=== PATIENT | male | born 1960 | race Caucasian/White ===

== ENCOUNTER 2016-08-26 09:25 | Day surgery (SDC) | payer MEDICAID ==
[~2016-08-26 09:25] MED LIST: Ketorolac 10 MG Tab PO PRN; Lactated Ringers 1,000 ML IV SCH; ceFAZolin 2 GM in Premix Bag 1 BAG IV SCH
[2016-08-26] MEDS ORDERED: Ondansetron 4 MG/2 ML SDV ONE (10:01)
[2016-08-26] MEDS ORDERED: Rocuronium 10 MG/ML 10 ML Syringe ONE (10:01)
[2016-08-26] MEDS ORDERED: Lidocaine 2% 5 ML SDV ONE (10:01)
[2016-08-26] MEDS ORDERED: Propofol 200 MG/20 ML SDV ONE (10:01)
[2016-08-26] MEDS ORDERED: Neostigmine Methylsulfate 1 MG/ML 5 ML Syringe ONE (10:01)
[2016-08-26] MEDS ORDERED: fentaNYL 250 MCG/5 ML SDV ONE (10:02)
[2016-08-26] MEDS ORDERED: Midazolam 1 MG/ML 2 ML SDV ONE (10:02)
[2016-08-26] MEDS ORDERED: ceFAZolin 1 GM Vial ONE (10:04)
[2016-08-26] MEDS ORDERED: Sodium Chloride 0.9% 20 ML ONE (10:04)
--- NOTE | 2016-08-26 10:08 | PCM.PREANE ---
Preanesthetic Assessment - Procedure Proposed Procedure: Left shoulder arthroscopic exam; subacromial decompression, biceps tenotomy and possible rotator cuff repair - Anesthesia/Transfusion/Family Hx Anesthesia History: Prior Anesthesia Without Reaction Transfusion History: No Prior Transfusion(s) Intubation History: Unknown - Review of Systems General: Other (HPI) Pulmonary: No Symptoms Cardiovascular: Other (hypertension) Gastrointestinal: No symptoms Neurological: Other (left shoulder pain) - Physical Assessment Height: 5 ft 8 in Weight: 200 lb ASA Class: 2 Mental Status: Alert & Oriented x3 Airway Class: Mallampati = 2 Dentition: Reports: Normal Dentition Thyro-Mental Finger Breadths: 3 (scar on left angle of mandible) Mouth Opening Finger Breadths: 3 ROM/Head Extension: Full Lungs: Clear to auscultation, Normal respiratory effort Cardiovascular: Regular Rate, Regular Rhythm, No Murmurs - Allergies Allergies/Adverse Reactions: Allergies Allergy/AdvReac Type Severity Reaction Status Date / Time hay Allergy Sneezing Uncoded 08/24/16 12:33 - Blood Blood Available: No Product(s) Available: None - Anesthesia Plan Pre-Op Medication Ordered: None - Acknowledgements Anesthesia Type Planned: General Anesthesia Pt an Appropriate Candidate for the Planned Anesthesia: Yes Alternatives and Risks of Anesthesia Discussed w Pt/Guardian: Yes Pt/Guardian Understands and Agrees with Anesthesia Plan: Yes PreAnesthesia Questionnaire HEENT History: Reports: None, Allergic Rhinitis Other HEENT History: first cutting of hay causes sneezing,watery eyes Cardiovascular History: Reports: Hypertension Respiratory History: Reports: None Gastrointestinal History: Reports: None Genitourinary History: Reports: None Musculoskeletal History: Reports: Arthritis Other Musculoskeletal History: ankles Neurological History: Reports: None Psychiatric History: Reports: None Endocrine/Metabolic History: Reports: Obesity/BMI 30+ Hematologic History: Reports: None Immunologic History: Reports: None Oncologic (Cancer) History: Reports: None Dermatologic History: Reports: None - Past Surgical History Head Surgeries/Procedures: Reports: None HEENT Surgical History: Reports: None Cardiovascular Surgical History: Reports: None Respiratory Surgical History: Reports: None GI Surgical History: Reports: Hernia, Inguinal Male Surgical History: Reports: None Endocrine Surgical History: Reports: None Neurological Surgical History: Reports: None Musculoskeletal Surgical History: Reports: None Oncologic Surgical History: Reports: None Dermatological Surgical History: Reports: None - SUBSTANCE USE Smoking Status *Q: Former Smoker Tobacco Use Within Last Twelve Months: No Recreational Drug Use History: No - HOME MEDS Home Medications: Home Meds Acetaminophen [Tylenol Extra Strength] 500 mg PO ASDIRECTED PRN 08/24/16 [ History] Hydrochlorothiazide 25 mg PO DAILY 08/24/16 [History] Lisinopril 20 mg PO DAILY 08/24/16 [History] Multivitamin [Daily Multiple Vitamin] 1 tab PO DAILY 08/24/16 [History] oxyCODONE HCl/Acetaminophen [Percocet 5-325 mg Tablet] 1 tab PO BID PRN [History] - CURRENT (IN HOUSE) MEDS Current Meds: Current Medications Hydrocodone Bitart/Acetaminophen ([place] 325-10 Mg) 1 - 2 tab PO Q4H PRN PRN Reason: Pain Lactated Ringer's (Ringers, Lactated) 1,000 mls @ 100 mls/hr IV ASDIRECTED CYRUS Cefazolin Sodium/Dextrose 2 gm (/ Premix) 50 mls @ 100 mls/hr IV ONCALL CYRUS Ketorolac Tromethamine (Toradol) 10 mg PO Q6H PRN PRN Reason: Pain Stop: 08/31/16 08:01
[2016-08-26] MEDS ORDERED: ePHEDrine 50 MG/ML SDV ONE (11:13)
[2016-08-26] MEDS ORDERED: Phenylephrine 1% 10 MG/ML SDV ONE (11:22)
[2016-08-26] MEDS ORDERED: Dexamethasone 4 MG/ML 5 ML MDV ONE (11:38)
--- NOTE | 2016-08-26 12:26 | PCM.OPNOTE ---
- General Post-Op/Procedure Note Date of Surgery/Procedure: 08/26/16 Operative Procedure(s): 1. R shoulder arthroscopy with extensive debridement including biceps tenotomy and debridement of anterior labrum. 2. R shoulder arthroscopy with SAD Post-Op Diagnosis: 1. R shoulder impingement. 2. R shoulder biceps tendonopathy. 3. R shoulder deg anterior labrum tear Anesthesia Technique: General ET tube Primary Surgeon: Belgica Laird Tanning Solution Maker: Ez Fried in mLs: 5 Condition: Good Free Text/Narrative:: #[id number]
[2016-08-26] MEDS: fentaNYL 100 MCG/2 ML SDV IVPUSH PRN ×4 (12:41→13:01)
--- NOTE | 2016-08-26 12:41 | PCM.POSTAN ---
POST ANESTHESIA ASSESSMENT - MENTAL STATUS Mental Status: alert, oriented - RESPIRATORY Respiratory Status: respiratory rate WNL, airway patent, O2 saturation stable - CARDIOVASCULAR CV Status: pulse rate WNL, blood pressure stable - GASTROINTESTINAL GI Status: no symptoms - POST OP HYDRATION Hydration Status: adequate & stable
[2016-08-26] MEDS ORDERED: Ketorolac 30 MG/ML SDV IVPUSH ONE (13:19)
[2016-08-26] MEDS: Acetaminophen/HYDROcodone 325-10 MG Tab PO PRN ×2 (13:29→14:24)
--- NOTE | 2016-08-26 15:40 | PCM48HPAN ---
Post Anesthesia Note - EVALUATION WITHIN 48HRS OF ANESTHETIC Vital Signs in Normal Range: Yes Patient Participated in Evaluation: Yes Respiratory Function Stable: Yes Airway Patent: Yes Cardiovascular Function Stable: Yes Hydration Status Stable: Yes Pain Control Satisfactory: Yes Nausea and Vomiting Control Satisfactory: Yes Mental Status Recovered: Yes - COMMENTS/OBSERVATIONS Free Text/Narrative:: discharged to home ion good condition and happy to be done.
[2016-08-26 16:30] VITALS: BP 118/66
--- NOTE | 2016-08-26 18:32 | OR ---
SURGEON: Belgica Laird MD DATE OF PROCEDURE: 08/26/2016 PREOPERATIVE DIAGNOSES: 1. Left shoulder impingement. 2. Left biceps tendinopathy. POSTOPERATIVE DIAGNOSES: 1. Left shoulder impingement. 2. Left biceps tendinopathy. 3. Degenerative anterior labral tear. PROCEDURES: Right shoulder arthroscopy with: 1. Subacromial decompression with release of coracoacromial ligament and acromioplasty. 2. Extensive debridement including arthroscopic biceps tenotomy and debridement of anterior labral tear. TELEVISION CAMERAMAN: FRANCI Fried. ANESTHESIA: General. ESTIMATED BLOOD LOSS: 5 mL. TOURNIQUET TIME: 0 minutes. COMPLICATIONS: None. DVT PROPHYLAXIS: PAS boots to bilateral lower extremities. IMPLANTS USED: None. BRIEF HISTORY: Mynor is a 56-year-old male, who has had complaint of progressive left shoulder pain. He had failed conservative treatment. Due to his lack of response to conservative treatment, I did recommend surgical intervention. The risks and goals of procedure were discussed with the patient and were documented preoperatively. He agreed to proceed. DESCRIPTION OF PROCEDURE: The patient was properly identified and brought to the operating room. He was transferred from the OR cart and placed on the operating table in supine position. General anesthesia was administered. After adequate anesthesia was obtained, the patient was placed in a beach-chair type position. Care was taken to pad all bony prominences. His head was secured. Shoulder showed full range of motion. The left upper extremity was then prepped in standard fashion using ChloraPrep solution. It was then sterilely draped. A time-out was performed to ensure correct site and procedure. Preoperative antibiotics were given. The surgical site had been marked preoperatively. Bony landmarks were identified with a marking pen. Approximately 30 mL of normal saline was introduced into the glenohumeral joint. A posterior portal was established. Blunt trocar and cannula were introduced into the glenohumeral joint. Camera, inflow, and outflow were assembled. The rotator interval was visualized. This showed some synovitis. An anterior portal was then established. Electrocautery was used to resect a portion of the synovitis. The subscapularis was visualized and probed and found to be intact. Subscapularis recess showed no loose bodies. There was quite a bit of synovitis surrounding the biceps tendon. This was pulled into the joint and the synovitis extended distally along the tendon. Due to his preoperative symptoms, along with operative findings, I elected to proceed with a biceps tenotomy. This was performed with electrocautery. The biceps tendon retracted easily into the biceps tendon sheath. The attachment site was smoothed using electrocautery. He did have degenerative tearing of the anterior labrum. This was again debrided with electrocautery. A sublabral foramen was present. The posterior labrum showed no significant degenerative findings but did have some hemorrhagic tissue associated with it. The glenoid and humeral head showed no significant degenerative findings. The axillary pouch showed no loose bodies with mild synovitis. The arm was then brought into an abducted and externally rotated position. The bare area was noted posteriorly. He did have some undersurface tearing which involved only 1 to 2 mm along the mid section of the supraspinatus. This was debrided using the shaver. The instruments were then removed from the glenohumeral joint. The blunt trocar and cannula were introduced into the subacromial space. A lateral portal was established. He had extensive hemorrhagic bursitis noted in the subacromial space. Using a combination of the shaver and electrocautery, an extensive bursectomy was performed. The rotator cuff was able to be easily visualized and no tearing or weakening was noted. The anterior acromion and cork was then visualized. The coracoacromial ligament was released. This seemed to be causing impingement with some minor superficial abrasion of the rotator cuff tendon. A 5.0 mm timur was then used to perform an acromioplasty. This provided good decompression of the subacromial space. The instruments were then removed from the shoulder. The portal sites were closed with 3-0 nylon. Xeroform gauze was placed over the wound and a bulky dressing was applied. He was awakened from his anesthetic and transferred back to the operating room cart. He was brought to recovery room in stable condition. All needle and sponge counts were correct. REZA / SOLIS /[id number]
== END 2016-08-26 15:10 | disposition home or self-care (01) ==
LOC: MW.SDS 09:25
PROVIDERS: ATTEND Orthopaedic Surgery
DX: M75.42 Impingement syndrome of left shoulder (principal); M75.22 Bicipital tendinitis, left shoulder; S43.492A Other sprain of left shoulder joint, initial encounter; E78.00 Pure hypercholesterolemia, unspecified; Z91.09 Other allergy status, other than to drugs and biological substances; Z79.899 Other long term (current) drug therapy
CPT/HCPCS: 29822; 29826; A9270; J0690; J1100; J1885; J2250; J2370; J2405; J3010; J7120; 01630; 88304; J2704

== ENCOUNTER 2024-04-19 07:30 | Inpatient (IN) | payer MEDICAID, MEDICARE ==
[2024-04-19] MEDS ORDERED: Sodium Chloride 0.9% 1,000 ML IV ONE (08:11)
[2024-04-19 08:29] LABS: HEMATOCRIT 39.1 % (42.0-52.0); HEMOGLOBIN 13.2 g/dL (14.0-18.0); MEAN CORPUSCULAR HEMOGLOBIN 29.6 pg (28.0-32.0); MEAN CORPUSCULAR HGB CONC 33.8 g/dL (32.0-36.0); MEAN CORPUSCULAR VOLUME 87.7 fL (83.0-99.0); MEAN PLATELET VOLUME 8.9 fL (9.4-12.4); PLATELET COUNT,PLT 408 K/uL (150-400); RED BLOOD CELL COUNT 4.46 M/uL (4.52-5.90); WHITE BLOOD CELL COUNT,WBC 12.87 K/uL (3.9-11.3)
[2024-04-19] MEDS: Sodium Chloride 0.9% 1,000 ML IV ONE ×2 (08:47→15:19)
[2024-04-19] MEDS: cefTRIAXone 2 GM in Sodium Chloride 0.9% 50 ML IV ONE (08:48)
[2024-04-19] MEDS: Ondansetron 4 MG/2 ML SDV IVPUSH ONE (08:54)
[2024-04-19] MEDS: Morphine 2 MG/ML SYRINGE IVPUSH ONE (08:57)
[2024-04-19] MEDS: Clindamycin Phosphate in D5W 600 MG in Premix Bag 1 BAG IV ONE (09:01)
[2024-04-19 09:11] LABS: A/G RATIO 0.7 (0.9-1.6); ALBUMIN 2.7 g/dL (3.4-5.0); BILIRUBIN TOTAL 0.5 mg/dL (0.2-1.0); C-REACTIVE PROTEIN 9.67 mg/dL (<0.3); CALCIUM 9.1 mg/dL (8.5-10.1); CARBON DIOXIDE,CO2 29.9 mmol/L (21.0-32.0); CREATININE 1.1 mg/dL (0.8-1.3); EST CRCL DRUG DOSING (CG) 66.95 mL/min; POTASSIUM,K 3.8 mmol/L (3.5-5.1); PROTEIN TOTAL,TP 6.8 g/dL (6.4-8.2)
[2024-04-19 09:44] LABS: LYMPHOCYTES ABSOLUTE MAN 3.99 K/uL (1.00-4.80); LYMPHOCYTES PERCENT MAN 31 % (24-44); SEG NEUTROPHILS ABSOLUTE MAN 6.95 K/uL (1.80-7.70); SEG NEUTROPHILS PERCENT MAN 54 % (41-71)
[2024-04-19 09:45] LABS: BASOPHILS ABSOLUTE MAN 0.13 K/uL (0.00-0.20); BASOPHILS PERCENT MAN 1 % (0-1); EOSINOPHILS ABSOLUTE MAN 0.26 K/uL (0.00-0.45); EOSINOPHILS PERCENT MAN 2 % (0-6); MONOCYTES ABSOLUTE MAN 1.54 K/uL (0.00-0.80); MONOCYTES PERCENT MAN 12 % (0-8)
[2024-04-19] MEDS: Ketorolac 30 MG/ML SDV IVPUSH ONE (10:35)
[2024-04-19] MEDS: Bacitracin Oint 28.35 GM Tube TOP STA (10:44)
[2024-04-19] MEDS ORDERED: Diphtheria,Pertussis(Acell),Tetanus Vaccine 0.5 ML Syringe IM ONE (10:49)
[2024-04-19] MEDS: Iopamidol 755 MG/ML 500 ML Multipack Bottle IVPUSH STA (11:39)
[2024-04-19] MEDS ORDERED: Polyethylene Glycol 3350 Powder 17 GM Packet PO PRN (12:21)
[2024-04-19] MEDS ORDERED: Naloxone 0.4 MG/ML SDV IVPUSH PRN (12:21)
[2024-04-19] MEDS ORDERED: Docusate Sodium 100 MG Cap PO PRN (12:21)
[2024-04-19] MEDS ORDERED: Morphine 2 MG/ML SYRINGE IVPUSH PRN (12:21)
[2024-04-19] MEDS ORDERED: Sodium Chloride 0.9% 2.5 ML Syringe FLUSH PRN (12:21)
[2024-04-19] MEDS ORDERED: Ondansetron 4 MG/2 ML SDV IVPUSH PRN (12:21)
[2024-04-19] MEDS ORDERED: Sodium Chloride 0.9% 10 ML Syringe FLUSH PRN (12:21)
[2024-04-19] MEDS ORDERED: Acetaminophen 325 MG Tab PO PRN (12:21)
[2024-04-19] MEDS ORDERED: traMADol 50 MG Tab PO PRN (12:26)
[2024-04-19] MEDS ORDERED: oxyCODONE 5 MG Tab PO PRN (12:58)
[2024-04-19] MEDS: VANCOmycin 2 GM/400 ML 2 GM in Premix Bag 1 BAG IV ONE (14:02)
[2024-04-19] MEDS: Enoxaparin 40 MG/0.4 ML Syringe SUBCUT SCH (14:03)
[2024-04-19] MEDS: Fluconazole 150 MG Tab PO SCH (17:01)
[2024-04-19] MEDS: Diphtheria,Pertussis(Acell),Tetanus Vaccine 0.5 ML Syringe IM ONE (17:12)
[2024-04-19] MEDS ORDERED: VANCOmycin 750 MG in Sodium Chloride 0.9% 250 ML IV SCH (20:30)
[2024-04-19] MEDS: Amitriptyline 25 MG Tab PO SCH (21:07)
[2024-04-19] MEDS: Melatonin 3 MG Tab PO PRN (21:07)
[2024-04-19] MEDS: VANCOmycin 750 MG in Sodium Chloride 0.9% 250 ML IV SCH (21:17)
[2024-04-20] MEDS: Ibuprofen 400 MG Tab PO PRN (01:53)
[2024-04-20 05:39] LABS: BASOPHILS ABSOLUTE AUTO 0.04 K/uL (0.00-0.20); BASOPHILS PERCENT AUTO 0.4 % (0.0-1.0); EOSINOPHILS ABSOLUTE AUTO 0.36 K/uL (0.00-0.45); EOSINOPHILS PERCENT AUTO 3.9 % (0.0-6.0); HEMATOCRIT 36.7 % (42.0-52.0); HEMOGLOBIN 12.2 g/dL (14.0-18.0); IMMATURE GRAN ABSOLUTE AUTO 0.01 K/uL (0.00-0.05); IMMATURE GRAN PERCENT AUTO 0.1 % (0.0-0.4); LYMPHOCYTES ABSOLUTE AUTO 2.51 K/uL (1.00-4.80); LYMPHOCYTES PERCENT AUTO 27.5 % (24.0-44.0); MEAN CORPUSCULAR HEMOGLOBIN 29.5 pg (28.0-32.0); MEAN CORPUSCULAR HGB CONC 33.2 g/dL (32.0-36.0); MEAN CORPUSCULAR VOLUME 88.6 fL (83.0-99.0); MEAN PLATELET VOLUME 8.9 fL (9.4-12.4); MONOCYTES ABSOLUTE AUTO 0.98 K/uL (0.00-0.80); MONOCYTES PERCENT AUTO 10.7 % (0.0-8.0); NEUTROPHILS ABSOLUTE AUTO 5.23 K/uL (1.80-7.70); NEUTROPHILS PERCENT AUTO 57.4 % (41.0-71.0); PLATELET COUNT,PLT 383 K/uL (150-400); RED BLOOD CELL COUNT 4.14 M/uL (4.52-5.90); WHITE BLOOD CELL COUNT,WBC 9.13 K/uL (3.9-11.3)
[2024-04-20 06:02] LABS: CALCIUM 9.1 mg/dL (8.5-10.1); CARBON DIOXIDE,CO2 27.3 mmol/L (21.0-32.0); CREATININE 1.1 mg/dL (0.8-1.3); EST CRCL DRUG DOSING (CG) 66.95 mL/min; MAGNESIUM 2.2 mg/dL (1.8-2.4); PHOSPHORUS 4.3 mg/dL (2.6-4.7); POTASSIUM,K 3.7 mmol/L (3.5-5.1)
[2024-04-20] MEDS: cefTRIAXone 2 GM in Sodium Chloride 0.9% 50 ML IV SCH (08:32)
[2024-04-20] MEDS: Fenofibrate,Micronized 67 MG Cap PO SCH (08:33)
[2024-04-20] MEDS: Hydrochlorothiazide 25 MG Tab PO SCH (08:34)
[2024-04-20] MEDS: Lisinopril 10 MG Tab PO SCH (08:34)
[2024-04-20] MEDS: atorvaSTATin 10 MG Tab PO SCH (08:35)
[2024-04-21 05:25] LABS: BASOPHILS ABSOLUTE AUTO 0.02 K/uL (0.00-0.20); BASOPHILS PERCENT AUTO 0.2 % (0.0-1.0); EOSINOPHILS ABSOLUTE AUTO 0.26 K/uL (0.00-0.45); EOSINOPHILS PERCENT AUTO 2.9 % (0.0-6.0); HEMATOCRIT 36.7 % (42.0-52.0); HEMOGLOBIN 12.2 g/dL (14.0-18.0); IMMATURE GRAN ABSOLUTE AUTO 0.02 K/uL (0.00-0.05); IMMATURE GRAN PERCENT AUTO 0.2 % (0.0-0.4); LYMPHOCYTES PERCENT AUTO 33.3 % (24.0-44.0); MEAN CORPUSCULAR HEMOGLOBIN 29.4 pg (28.0-32.0); MEAN CORPUSCULAR HGB CONC 33.2 g/dL (32.0-36.0); MEAN CORPUSCULAR VOLUME 88.4 fL (83.0-99.0); MEAN PLATELET VOLUME 8.8 fL (9.4-12.4); MONOCYTES PERCENT AUTO 11.1 % (0.0-8.0); NEUTROPHILS ABSOLUTE AUTO 4.72 K/uL (1.80-7.70); NEUTROPHILS PERCENT AUTO 52.3 % (41.0-71.0); PLATELET COUNT,PLT 399 K/uL (150-400); RED BLOOD CELL COUNT 4.15 M/uL (4.52-5.90); WHITE BLOOD CELL COUNT,WBC 9.02 K/uL (3.9-11.3)
[2024-04-21 05:46] LABS: CALCIUM 8.9 mg/dL (8.5-10.1); CREATININE 1.1 mg/dL (0.8-1.3); EST CRCL DRUG DOSING (CG) 66.95 mL/min; MAGNESIUM 2.2 mg/dL (1.8-2.4); POTASSIUM,K 3.9 mmol/L (3.5-5.1)
[2024-04-21] MEDS: VANCOmycin 1.25 GM in Sodium Chloride 0.9% 250 ML IV SCH (20:46)
[2024-04-21] MEDS: Calcium Carbonate 500 MG Tab.Chew PO ONE (20:56)
[2024-04-21] MEDS ORDERED: Albuterol/Ipratropium 3.0-0.5 MG/3 ML Neb Soln NEB PRN (23:47)
[2024-04-22 06:08] LABS: BASOPHILS ABSOLUTE AUTO 0.03 K/uL (0.00-0.20); BASOPHILS PERCENT AUTO 0.4 % (0.0-1.0); EOSINOPHILS ABSOLUTE AUTO 0.28 K/uL (0.00-0.45); EOSINOPHILS PERCENT AUTO 3.5 % (0.0-6.0); HEMATOCRIT 39.8 % (42.0-52.0); HEMOGLOBIN 13.2 g/dL (14.0-18.0); IMMATURE GRAN ABSOLUTE AUTO 0.03 K/uL (0.00-0.05); IMMATURE GRAN PERCENT AUTO 0.4 % (0.0-0.4); LYMPHOCYTES ABSOLUTE AUTO 2.62 K/uL (1.00-4.80); LYMPHOCYTES PERCENT AUTO 32.6 % (24.0-44.0); MEAN CORPUSCULAR HEMOGLOBIN 29.3 pg (28.0-32.0); MEAN CORPUSCULAR HGB CONC 33.2 g/dL (32.0-36.0); MEAN CORPUSCULAR VOLUME 88.4 fL (83.0-99.0); MEAN PLATELET VOLUME 8.8 fL (9.4-12.4); MONOCYTES ABSOLUTE AUTO 0.97 K/uL (0.00-0.80); MONOCYTES PERCENT AUTO 12.1 % (0.0-8.0); NEUTROPHILS ABSOLUTE AUTO 4.11 K/uL (1.80-7.70); PLATELET COUNT,PLT 400 K/uL (150-400); WHITE BLOOD CELL COUNT,WBC 8.04 K/uL (3.9-11.3)
[2024-04-22 06:23] LABS: CALCIUM 9.5 mg/dL (8.5-10.1); CARBON DIOXIDE,CO2 31.7 mmol/L (21.0-32.0); EST CRCL DRUG DOSING (CG) 73.65 mL/min; MAGNESIUM 2.1 mg/dL (1.8-2.4); POTASSIUM,K 4.2 mmol/L (3.5-5.1)
[2024-04-23] MEDS: Cefepime 2 GM in Sodium Chloride 0.9% 50 ML IV SCH (20:27)
[2024-04-24 09:06] LABS: BASOPHILS ABSOLUTE AUTO 0.04 K/uL (0.00-0.20); BASOPHILS PERCENT AUTO 0.5 % (0.0-1.0); EOSINOPHILS ABSOLUTE AUTO 0.25 K/uL (0.00-0.45); HEMATOCRIT 39.1 % (42.0-52.0); HEMOGLOBIN 12.7 g/dL (14.0-18.0); IMMATURE GRAN ABSOLUTE AUTO 0.03 K/uL (0.00-0.05); IMMATURE GRAN PERCENT AUTO 0.4 % (0.0-0.4); LYMPHOCYTES ABSOLUTE AUTO 1.95 K/uL (1.00-4.80); LYMPHOCYTES PERCENT AUTO 23.1 % (24.0-44.0); MEAN CORPUSCULAR HEMOGLOBIN 29.1 pg (28.0-32.0); MEAN CORPUSCULAR HGB CONC 32.5 g/dL (32.0-36.0); MEAN CORPUSCULAR VOLUME 89.5 fL (83.0-99.0); MONOCYTES ABSOLUTE AUTO 0.65 K/uL (0.00-0.80); MONOCYTES PERCENT AUTO 7.7 % (0.0-8.0); NEUTROPHILS ABSOLUTE AUTO 5.51 K/uL (1.80-7.70); NEUTROPHILS PERCENT AUTO 65.3 % (41.0-71.0); PLATELET COUNT,PLT 393 K/uL (150-400); RED BLOOD CELL COUNT 4.37 M/uL (4.52-5.90); WHITE BLOOD CELL COUNT,WBC 8.43 K/uL (3.9-11.3)
[2024-04-24 09:40] LABS: CARBON DIOXIDE,CO2 32.9 mmol/L (21.0-32.0); CREATININE 1.1 mg/dL (0.8-1.3); EST CRCL DRUG DOSING (CG) 66.95 mL/min; MAGNESIUM 2.1 mg/dL (1.8-2.4); POTASSIUM,K 4.7 mmol/L (3.5-5.1)
[2024-04-25 06:17] LABS: BASOPHILS ABSOLUTE AUTO 0.04 K/uL (0.00-0.20); BASOPHILS PERCENT AUTO 0.5 % (0.0-1.0); EOSINOPHILS ABSOLUTE AUTO 0.36 K/uL (0.00-0.45); EOSINOPHILS PERCENT AUTO 4.4 % (0.0-6.0); HEMATOCRIT 39.8 % (42.0-52.0); HEMOGLOBIN 12.8 g/dL (14.0-18.0); IMMATURE GRAN ABSOLUTE AUTO 0.03 K/uL (0.00-0.05); IMMATURE GRAN PERCENT AUTO 0.4 % (0.0-0.4); MEAN CORPUSCULAR HEMOGLOBIN 29.2 pg (28.0-32.0); MEAN CORPUSCULAR HGB CONC 32.2 g/dL (32.0-36.0); MEAN CORPUSCULAR VOLUME 90.7 fL (83.0-99.0); MEAN PLATELET VOLUME 8.8 fL (9.4-12.4); MONOCYTES ABSOLUTE AUTO 0.95 K/uL (0.00-0.80); MONOCYTES PERCENT AUTO 11.6 % (0.0-8.0); NEUTROPHILS PERCENT AUTO 50.1 % (41.0-71.0); PLATELET COUNT,PLT 420 K/uL (150-400); RED BLOOD CELL COUNT 4.39 M/uL (4.52-5.90); WHITE BLOOD CELL COUNT,WBC 8.18 K/uL (3.9-11.3)
[2024-04-25 06:42] LABS: CALCIUM 8.9 mg/dL (8.5-10.1); CARBON DIOXIDE,CO2 31.2 mmol/L (21.0-32.0); CREATININE 1.2 mg/dL (0.8-1.3); EST CRCL DRUG DOSING (CG) 40.56 mL/min; MAGNESIUM 2.2 mg/dL (1.8-2.4); POTASSIUM,K 4.3 mmol/L (3.5-5.1)
[2024-04-26 05:52] LABS: BASOPHILS ABSOLUTE AUTO 0.03 K/uL (0.00-0.20); BASOPHILS PERCENT AUTO 0.3 % (0.0-1.0); EOSINOPHILS ABSOLUTE AUTO 0.28 K/uL (0.00-0.45); EOSINOPHILS PERCENT AUTO 3.1 % (0.0-6.0); HEMATOCRIT 38.9 % (42.0-52.0); HEMOGLOBIN 12.7 g/dL (14.0-18.0); IMMATURE GRAN ABSOLUTE AUTO 0.02 K/uL (0.00-0.05); IMMATURE GRAN PERCENT AUTO 0.2 % (0.0-0.4); LYMPHOCYTES ABSOLUTE AUTO 2.13 K/uL (1.00-4.80); LYMPHOCYTES PERCENT AUTO 23.5 % (24.0-44.0); MEAN CORPUSCULAR HGB CONC 32.6 g/dL (32.0-36.0); MEAN CORPUSCULAR VOLUME 88.8 fL (83.0-99.0); NEUTROPHILS PERCENT AUTO 61.9 % (41.0-71.0); PLATELET COUNT,PLT 407 K/uL (150-400); RED BLOOD CELL COUNT 4.38 M/uL (4.52-5.90); WHITE BLOOD CELL COUNT,WBC 9.06 K/uL (3.9-11.3)
[2024-04-26 06:15] LABS: CALCIUM 8.9 mg/dL (8.5-10.1); CARBON DIOXIDE,CO2 28.5 mmol/L (21.0-32.0); EST CRCL DRUG DOSING (CG) 73.65 mL/min
[2024-04-26] MEDS: Levofloxacin 750 MG Tab PO SCH (11:50)
[2024-04-26] MEDS: Doxycycline 100 MG Cap PO SCH (21:08)
[2024-04-27 05:57] LABS: BASOPHILS ABSOLUTE AUTO 0.05 K/uL (0.00-0.20); BASOPHILS PERCENT AUTO 0.8 % (0.0-1.0); EOSINOPHILS ABSOLUTE AUTO 0.32 K/uL (0.00-0.45); EOSINOPHILS PERCENT AUTO 4.8 % (0.0-6.0); HEMATOCRIT 38.6 % (42.0-52.0); HEMOGLOBIN 12.7 g/dL (14.0-18.0); IMMATURE GRAN ABSOLUTE AUTO 0.02 K/uL (0.00-0.05); IMMATURE GRAN PERCENT AUTO 0.3 % (0.0-0.4); LYMPHOCYTES PERCENT AUTO 37.8 % (24.0-44.0); MEAN CORPUSCULAR HEMOGLOBIN 29.1 pg (28.0-32.0); MEAN CORPUSCULAR HGB CONC 32.9 g/dL (32.0-36.0); MEAN CORPUSCULAR VOLUME 88.3 fL (83.0-99.0); MEAN PLATELET VOLUME 8.9 fL (9.4-12.4); MONOCYTES ABSOLUTE AUTO 0.82 K/uL (0.00-0.80); MONOCYTES PERCENT AUTO 12.4 % (0.0-8.0); NEUTROPHILS PERCENT AUTO 43.9 % (41.0-71.0); PLATELET COUNT,PLT 396 K/uL (150-400); RED BLOOD CELL COUNT 4.37 M/uL (4.52-5.90); WHITE BLOOD CELL COUNT,WBC 6.61 K/uL (3.9-11.3)
[2024-04-27 06:16] LABS: CALCIUM 9.2 mg/dL (8.5-10.1); CARBON DIOXIDE,CO2 29.3 mmol/L (21.0-32.0); CREATININE 1.2 mg/dL (0.8-1.3); EST CRCL DRUG DOSING (CG) 61.37 mL/min
[2024-04-28 06:25] LABS: BASOPHILS ABSOLUTE AUTO 0.05 K/uL (0.00-0.20); BASOPHILS PERCENT AUTO 0.7 % (0.0-1.0); EOSINOPHILS ABSOLUTE AUTO 0.28 K/uL (0.00-0.45); EOSINOPHILS PERCENT AUTO 3.8 % (0.0-6.0); HEMATOCRIT 39.2 % (42.0-52.0); IMMATURE GRAN ABSOLUTE AUTO 0.02 K/uL (0.00-0.05); IMMATURE GRAN PERCENT AUTO 0.3 % (0.0-0.4); LYMPHOCYTES ABSOLUTE AUTO 2.34 K/uL (1.00-4.80); LYMPHOCYTES PERCENT AUTO 31.4 % (24.0-44.0); MEAN CORPUSCULAR HEMOGLOBIN 29.1 pg (28.0-32.0); MEAN CORPUSCULAR HGB CONC 33.2 g/dL (32.0-36.0); MEAN CORPUSCULAR VOLUME 87.9 fL (83.0-99.0); MEAN PLATELET VOLUME 8.9 fL (9.4-12.4); MONOCYTES PERCENT AUTO 10.7 % (0.0-8.0); NEUTROPHILS ABSOLUTE AUTO 3.97 K/uL (1.80-7.70); NEUTROPHILS PERCENT AUTO 53.1 % (41.0-71.0); PLATELET COUNT,PLT 393 K/uL (150-400); RED BLOOD CELL COUNT 4.46 M/uL (4.52-5.90); WHITE BLOOD CELL COUNT,WBC 7.46 K/uL (3.9-11.3)
[2024-04-28 06:55] LABS: CALCIUM 9.1 mg/dL (8.5-10.1); CREATININE 1.2 mg/dL (0.8-1.3); EST CRCL DRUG DOSING (CG) 61.37 mL/min
[2024-05-02 12:25] VITALS: BP 122/59; PULSE 109
== END 2024-05-02 13:35 | disposition home or self-care (01) | DRG 603 ==
LOC: MW.ED 07:30 → MW.MS 10:40
PROVIDERS: ADMIT Family Medicine; ATTEND Family Medicine
DX: L03.115 Cellulitis of right lower limb (principal); T69.021A Immersion foot, right foot, initial encounter; Z59.00 Homelessness unspecified; R74.02 Elevation of levels of lactic acid dehydrogenase [LDH]; L03.116 Cellulitis of left lower limb; E78.00 Pure hypercholesterolemia, unspecified; I10 Essential (primary) hypertension; J30.9 Allergic rhinitis, unspecified; Z68.31 Body mass index [BMI] 31.0-31.9, adult; M19.90 Unspecified osteoarthritis, unspecified site; E66.9 Obesity, unspecified; F41.9 Anxiety disorder, unspecified; L08.0 Pyoderma; F43.10 Post-traumatic stress disorder, unspecified; B96.5 Pseudomonas (aeruginosa) (mallei) (pseudomallei) as the cause of diseases classified elsewhere; Z98.890 Other specified postprocedural states; Z91.09 Other allergy status, other than to drugs and biological substances; Z79.02 Long term (current) use of antithrombotics/antiplatelets; Z79.899 Other long term (current) drug therapy; Z87.891 Personal history of nicotine dependence; Z68.33 Body mass index [BMI] 33.0-33.9, adult
CPT/HCPCS: 36415; 73590; 73620; 80053; 83605 ×2; 83880; 85025; 85652; 86140; 87040 ×2; 93005; 96365; 96367; 96375; 99285; J0696; J0736; J1885; J2270; J2405; J3490; J7030; 73701-26-LT; 73701-26-RT; 73701-LT; 73701-RT; 80048; 80202; 83735; 84100; 87070; 87077; 87186; 87205; 90471; 90715; 93010; 97116-GP; 97161-GP; A9270-GY; J0692; J1650; J3370; J3371; J3372; J7050; Q9967